=== PATIENT | male | born 1970 | race Hispanic/Latino ===

== ENCOUNTER 2019-02-19 19:58 | Emergency (ER) | payer OTHER ==
[2019-02-19] MEDS ORDERED: IPRATROPIUM/ALBUTEROL SULFATE 3 ML SOLUTION IH ONE (20:26)
== END 2019-02-19 21:12 | disposition home or self-care (01) ==
LOC: EDH 19:58
DX: J20.9 Acute bronchitis, unspecified (principal); Z88.0 Allergy status to penicillin
CPT/HCPCS: 71046; 94640